=== PATIENT | male | born 1990 | race African-American/Black ===

== ENCOUNTER 2016-04-30 22:37 | Emergency (ER) | payer BC, MEDICAID ==
[2016-04-30 22:55] VITALS: BP 124/82
[2016-05-01 00:05] LABS: Benzodiazepine Urine Screen None Detected (None Detect)
--- NOTE | 2016-05-01 00:13 | ED ---
Medical Screening - HPI Summary HPI Summary: 25M presents for drug screening from [facility]. was seen at [facility] snorting something and there police has to have drug screening. He denies snorting anything. He takes welbutrin for smoking. He denies any symptoms. - History of Current Complaint Chief Complaint: EDGeneral Stated Complaint: POSS DRUG ABUSE Time Seen by Provider: 04/30/16 22:56 PMH/Surg Hx/FS Hx/Imm Hx Endocrine/Hematology History: Denies: Hx Anticoagulant Therapy Respiratory History: Denies: Hx Asthma Infectious Disease History: No Infectious Disease History: Denies: Traveled Outside the [place] in Last 30 Days - Family History Known Family History: Negative: Cardiac Disease - Social History Alcohol Use: None Alcohol Amount: sober Substance Use Type: Reports: None Smoking Status (MU): Former Smoker Review of Systems Negative: Fever Negative: Chest Pain Negative: Shortness Of Breath All Other Systems Reviewed And Are Negative: Yes Physical Exam Triage Information Reviewed: Yes Vital Signs On Initial Exam: Initial Vitals Temp Pulse Resp BP Pulse Ox 99.0 F 76 14 124/82 99 04/30/16 22:46 04/30/16 22:46 04/30/16 22:46 04/30/16 22:46 04/30/16 22:46 Vital Signs Reviewed: Yes Appearance: Positive: Well-Appearing Skin: Positive: Warm, Dry Head/Face: Positive: Normal Head/Face Inspection Eyes: Positive: Normal, Conjunctiva Clear Respiratory/Lung Sounds: Positive: Clear to Auscultation, Breath Sounds Present Cardiovascular: Positive: Normal, RRR Diagnostics - Vital Signs Vital Signs Temp Pulse Resp BP Pulse Ox 04/30/16 22:46 99.0 F 76 14 124/82 99 - Laboratory Lab Results: Lab Results 04/30/16 Range/Units 23:29 Urine Opiates Screen None detected (None Detect) Ur Barbiturates Screen None detected (None Detect) Ur Phencyclidine Scrn None detected (None Detect) Ur Amphetamines Screen Presumptive positive H (None Detect) U Benzodiazepines Scrn None detected (None Detect) Urine Cocaine Screen None detected (None Detect) U Cannabinoids Screen None detected (None Detect) Lab Statement: Any lab studies that have been ordered have been reviewed, and results considered in the medical decision making process. Course/Dx - Course Course Of Treatment: 25M presents for drug screen for [facility]. denies taking anything. agrees to test. takes welbutrin for smoking cessation, drug screening positive for amphetamines which may be from welbutrin. patient d/c back to [facility] - Diagnoses Provider Diagnoses: Encounter for drug screening Discharge - Discharge Plan Condition: Good Disposition: HOME Referrals: Non Staff,Doctor [Primary Care Provider] - Additional Instructions: Refrain from any drug use Return to ED if develop any new or worsening symptoms
== END 2016-05-01 00:28 | disposition home or self-care (01) ==
LOC: ED 22:37
DX: Z13.89 Encounter for screening for other disorder (principal); Z87.891 Personal history of nicotine dependence; Z88.0 Allergy status to penicillin
CPT/HCPCS: 36415; 80307; 99281